=== PATIENT | male | born 2000 | race African-American/Black ===

== ENCOUNTER 2024-04-22 11:42 | Emergency (ER) | payer SELFPAY ==
[~2024-04-22] VITALS: Ht 182.9 cm; Wt 91.0 kg
[2024-04-22 11:50] VITALS: BP 135/83; PULSE 82; RESP 18; TEMP 98.4; O2SAT 98
[2024-04-22 12:09] LABS: BASOPHILS % 0.3 % (0.0-2.0); EOSINOPHILS % 0.1 % (0.0-5.0); HEMATOCRIT. 47.1 % (42.0-52.0); LYMPHOCYTES % 13.3 % (20.0-50.0); MEAN CORPUSCULAR HEMOGLOBIN 30.2 pg (28.0-32.0); MEAN CORPUSCULAR HGB CONC 33.9 g/dL (31.0-37.0); MEAN PLATELET VOLUME 8.4 fl (7.4-10.4); MONOCYTES % 7.7 % (2.0-8.0); NEUTROPHILS % 78.6 % (40.0-76.0); PLATELET 271 x1000/uL (130-400); RED CELL DISTRIBUTION WIDTH 13.2 % (11.6-14.6); WHITE BLOOD COUNT 9.5 x1000/uL (4.5-11.0)
[2024-04-22 12:16] LABS: CHLORIDE 100 mEq/L (98-107); SODIUM 133 mEq/L (136-145)
[2024-04-22 12:17] LABS: CARBON DIOXIDE 25 mEq/L (21-32)
[2024-04-22 12:18] LABS: CALCIUM 9.5 mg/dL (8.7-10.4)
[2024-04-22 12:22] LABS: GLUCOSE 111 mg/dL (70-105)
[2024-04-22 12:23] LABS: UREA NITROGEN BLOOD 7 mg/dL (9-23)
[2024-04-22 13:09] LABS: CLARITY URINE CLEAR (CLEAR); COLOR URINE YELLOW (YELLOW); GLUCOSE URINE NEGATIVE (NEGATIVE); KETONES URINE 2+ (NEGATIVE); LEUKOCYTE ESTERASE URINE NEGATIVE (NEGATIVE); NITRITE URINE NEGATIVE (NEGATIVE); OCCULT BLOOD URINE NEGATIVE (NEGATIVE); PROTEIN URINE 1+ (NEGATIVE); SPECIFIC GRAVITY URINE 1.031 (1.005-1.030)
[2024-04-22 13:21] LABS: MUCUS URINE 3+ /lpf (NONE/TRACE)
[2024-04-22 13:22] LABS: SQUAMOUS EPITHELIAL CELL URINE FEW /lpf (RARE/1+); WBC URINE 0-2 /hpf (0-2)
[2024-04-22 13:23] LABS: BACTERIA URINE NONE SEEN; RBC URINE NONE SEEN /hpf (0-2)
== END 2024-04-22 17:31 | disposition home or self-care (01) ==
LOC: ER 11:42
DX: R10.30 Lower abdominal pain, unspecified (principal); F19.90 Other psychoactive substance use, unspecified, uncomplicated
CPT/HCPCS: 36415; 74176; 80048; 81003; 85025; 99284